=== PATIENT | female | born 1980 | race Hispanic/Latino ===

== ENCOUNTER 2022-07-19 20:06 | Emergency (ER) | payer MEDICAID ==
[~2022-07-19] VITALS: Ht 157.5 cm; Wt 72.6 kg
[2022-07-19] MEDS ORDERED: MAG/ALUM/SIMETH 30 ML UDCUP PO ONE (20:30)
[2022-07-19] MEDS ORDERED: ONDANSETRON 4MG INJ IVP ONE (20:30)
[2022-07-19] MEDS ORDERED: LIDOCAINE HCL 2% VISCOUS 15 ML UDCUP PO ONE (20:30)
[2022-07-19 20:42] LABS: BASOPHILS % (AUTO) 0.2 % (0.0-5.0); EOSINOPHILS % (AUTO) 1.6 % (0.0-8.0); HEMATOCRIT 37.1 % (36-48); LYMPHOCYTES % (AUTO) 12.9 % (21.0-51.0); MEAN CORPUSCULAR HEMOGLOBIN 28.1 pg (27.0-33.0); MEAN CORPUSCULAR HGB CONC 33.2 g/dL (32.0-36.0); MEAN CORPUSCULAR VOLUME 84.7 fL (79-99); MONOCYTES % (AUTO) 5.4 % (3.0-13.0); NEUTROPHILS % (AUTO) 79.3 % (40.0-77.0); PLATELET COUNT (AUTO) 295 K/uL (130-400); RED BLOOD CELL COUNT(AUTO) 4.38 MIL/uL (4.00-5.50); RED CELL DISTRIBUTION WIDTH 13.7 % (11.0-15.5); WHITE BLOOD COUNT (AUTO) 14.4 K/uL (4.8-10.8)
[2022-07-19 20:54] LABS: CREATININE 0.8 mg/dL (0.5-1.5); POTASSIUM 4.4 mmol/L (3.5-5.1); TOTAL PROTEIN, SERUM 7.6 g/dL (6.0-8.3)
[2022-07-19] MEDS ORDERED: MORPHINE 2 MG SYG IVP ONE (21:00)
[2022-07-19 22:58] LABS: APPEARANCE,URINE CLEAR (CLEAR); BILIRUBIN,URINE NEGATIVE (NEGATIVE); COLOR,URINE YELLOW (YELLOW); GLUCOSE, URINE (UA) NEGATIVE (NEGATIVE); KETONES,URINE NEGATIVE (NEGATIVE); LEUKOCYTE ESTERASE ,URINE NEGATIVE Leu/uL (NEGATIVE); NITRATE,URINE NEGATIVE (NEGATIVE); OCCULT BLOOD,URINE NEGATIVE (NEGATIVE); PH,URINE 6.5 (5.0-8.0); PROTEIN,URINE 20 mg/dL (NEGATIVE); UROBILINOGEN,URINE 3 mg/dL (0.2-1.0)
[2022-07-19] MEDS ORDERED: IOHEXOL 350 MG/ML 100ML INFUS..BTL IV ONE (23:57)
[2022-07-20] MEDS ORDERED: 0.9%NACL 1000ML 2,000 ML IV ONE
[2022-07-20] MEDS ORDERED: CARAL PO (00:48)
[2022-07-20] MEDS ORDERED: FAMO-136 PO (00:48)
[2022-07-20] MEDS ORDERED: ONDA4TAB10 PO (00:49)
[2022-07-20 00:56] VITALS: BP 98/59
== END 2022-07-20 01:16 | disposition home or self-care (01) ==
LOC: EDH 20:06
DX: K52.9 Noninfective gastroenteritis and colitis, unspecified (principal); Z88.1 Allergy status to other antibiotic agents; Z88.5 Allergy status to narcotic agent; Z98.890 Other specified postprocedural states
CPT/HCPCS: 99285; 74177; 96374; 96361; 96375; 84484; 80053; 83690; 85025; 81003; 36415; 74021; J2405; Q9967

== ENCOUNTER → 2024-03-15 | Outpatient (CLI) | payer MEDICAID ==
[~2024-03-15] MED LIST: CARAL PO; DIATR MEGLU/DIATRIZOATE SODIUM 30 ML BOTTLE ONE; FAMO-136 PO; ONDA-243 PO
[2024-03-15 10:30] LABS: BASOPHILS # (AUTO) 0.03 K/uL (0.00-0.20); BASOPHILS % (AUTO) 0.5 % (0.0-5.0); EOSINOPHILS # (AUTO) 0.24 K/uL (0.00-0.70); EOSINOPHILS % (AUTO) 4.4 % (0.0-8.0); HEMATOCRIT 35.8 % (36-48); IMMATURE GRANULOCYTE ABSOLUTE 0.01 K/uL (0-1); LYMPHOCYTES # (AUTO) 1.6 K/uL (1.0-4.8); LYMPHOCYTES % (AUTO) 28.5 % (21.0-51.0); MEAN CORPUSCULAR HEMOGLOBIN 28.5 pg (27.0-33.0); MEAN CORPUSCULAR HGB CONC 32.1 g/dL (32.0-36.0); MEAN CORPUSCULAR VOLUME 88.6 fL (79-99); MONOCYTES # (AUTO) 0.3 K/uL (0.1-1.0); MONOCYTES % (AUTO) 6.2 % (3.0-13.0); NEUTROPHILS # (AUTO) 3.3 K/uL (1.8-7.7); NEUTROPHILS % (AUTO) 60.2 % (40.0-77.0); PLATELET COUNT (AUTO) 234 K/uL (130-400); RED BLOOD CELL COUNT(AUTO) 4.04 MIL/uL (4.00-5.50); RED CELL DISTRIBUTION WIDTH 14.6 % (11.0-15.5); WHITE BLOOD COUNT (AUTO) 5.5 K/uL (4.8-10.8)
[2024-03-15 10:38] LABS: HEMOGLOBIN A1C 5.8 % (4.0-6.0)
[2024-03-15 10:48] LABS: % IRON SATURATION 24.2 % (22-44)
[2024-03-15 11:10] LABS: ALANINE AMINOTRANSFERASE 55 U/L (12-78); ALBUMIN 3.6 g/dL (3.5-5.0); ASPARTATE AMINOTRANSFERASE 40 U/L (10-37); CARBON DIOXIDE 33 mmol/L (21-32); CHLORIDE 104 mmol/L (101-111); CHOLESTEROL 192 mg/dL (<200); CREATININE 0.7 mg/dL (0.5-1.0); GLOMERULAR FILTR. RATE CALC 109 mL/min (>90); GLUCOSE,RANDOM 89 mg/dL (70-105); HDL CHOLESTEROL 85 mg/dL (35-85); LDL DIRECT 83 mg/dL (0-99); POTASSIUM 4.2 mmol/L (3.5-5.1); SODIUM SERUM 140 mmol/L (136-145); TOTAL PROTEIN, SERUM 7.1 g/dL (6.0-8.3); TRIGLYCERIDES 133 mg/dL (30-200); UREA NITROGEN, BLOOD 16 mg/dL (7-18)
[2024-03-15 11:35] LABS: FERRITIN 18 ng/mL (15-150)
== END | disposition home or self-care (01) ==
LOC: RAH 09:37
PROVIDERS: ATTEND Student in an Organized Health Care Education/Training Program
DX: K21.9 Gastro-esophageal reflux disease without esophagitis (principal); R12 Heartburn; R10.9 Unspecified abdominal pain; K91.1 Postgastric surgery syndromes
CPT/HCPCS: 74240; 80061; 83036; 84443; 83540; 83550; 80053; 82728; 85025; 84439; 82306; 82607; 82746; 84590; 36415; Q9963